=== PATIENT | female | born 1965 | race American Indian/Alaskan Native ===

== ENCOUNTER 2016-09-29 17:23 | Emergency (ER) | payer SELFPAY ==
[2016-09-29] MEDS: NORCO 5/325 PO ONE (18:09)
[2016-09-29] MEDS: CATAPRES PO ONE (18:09)
--- NOTE | 2016-09-29 18:11 | Emergency Department Report ---
HPI - General Chief Complaint: High BP Time Seen by Provider: 09/29/16 17:52 - HPI HPI: Room 2 The patient is a 51-year-old female presenting with a chief complaint of hypertension. The patient states she has been off her blood pressure medication for the past 3 years. The patient states for the past 2-3 months she would have intermittent headache that is sometimes helped with Excedrin. Patient had a scheduled appointment to see her primary physician when she arrived she was noted to be hypertensive. The patient was administered blood pressure medication at 16:00 for her blood pressure continued to rise. The patient states she was a symptomatic at that time however after being transported the patient states she had a "numbness and sharp " discomfort in her chest that lasted 15 minutes but resolved. The patient states she did develop a headache which is still present gives a score of 6/10. Patient denies shortness of breath, nausea/vomiting or diaphoresis. Patient currently denies chest pain. Location: [see above] Duration: [see above] Quality: Headache Severity: 6/10 Modifying factors: [see above] Context: [see above] Mode of transportation: [not driving] ED Past Medical Hx - Past Medical History Previous Medical History?: Yes Hx Hypertension: Yes Hx Diabetes: Yes Hx Psychiatric Treatment: Yes (depression) - Surgical History Past Surgical History?: Yes Additional Surgical History: gastric bypass 1998 - Family History Family history: no significant - Social History Smoking Status: Never Smoker Substance Use Type: None - Medications Home Medications: Home Medications Medication Instructions Recorded Confirmed Last Taken Type amLODIPine [Norvasc] 10 mg PO DAILY #90 tab 09/29/16 Unknown Rx ED Review of Systems ROS: Stated complaint: HBP/BOTH ARMS/LEGS PAIN/CHEST PAIN Other details as noted in HPI Comment: All other systems reviewed and negative Constitutional: denies: chills, fever Eyes: denies: eye pain, eye discharge, vision change ENT: denies: ear pain, throat pain Respiratory: denies: cough, shortness of breath, wheezing Cardiovascular: chest pain. denies: palpitations Endocrine: no symptoms reported Gastrointestinal: denies: abdominal pain, nausea, diarrhea Genitourinary: denies: urgency, dysuria, discharge Musculoskeletal: denies: back pain, joint swelling, arthralgia Skin: denies: rash, lesions Neurological: headache Psychiatric: denies: anxiety, depression Hematological/Lymphatic: denies: easy bleeding, easy bruising Physical Exam - Physical Exam Vital Signs: Vital Signs 09/29/16 09/29/16 09/29/16 17:30 17:32 17:33 Temperature 98.1 F Pulse Rate 66 Respiratory Rate Blood Pressure 205/116 205/116 O2 Sat by Pulse 100 100 100 Oximetry 09/29/16 09/29/16 09/29/16 17:35 17:37 17:39 Temperature Pulse Rate 69 67 68 Respiratory 11 L 14 16 Rate Blood Pressure 205/116 205/116 205/116 O2 Sat by Pulse 100 100 100 Oximetry 09/29/16 09/29/16 09/29/16 17:41 17:43 17:45 Temperature Pulse Rate 63 69 67 Respiratory 10 L 13 10 L Rate Blood Pressure 205/116 205/116 215/122 O2 Sat by Pulse 100 100 100 Oximetry 09/29/16 09/29/16 17:47 17:57 Temperature Pulse Rate 63 Respiratory 10 L 10 L Rate Blood Pressure 215/122 O2 Sat by Pulse 100 100 Oximetry Physical Exam: GENERAL: The patient is well-developed well-nourished female lying on stretcher not appearing to be in acute distress. [] HEENT: Normocephalic. Atraumatic. Extraocular motions are intact. Patient has moist mucous membranes. NECK: Supple. Trachea midline CHEST/LUNGS: Clear to auscultation. There is no respiratory distress noted. HEART/CARDIOVASCULAR: Regular. There is no tachycardia. There is no gallop rub or murmur. ABDOMEN: Abdomen is soft, nontender. Patient has normal bowel sounds. There is no abdominal distention. SKIN: There is no rash. There is no edema. There is no diaphoresis. NEURO: The patient is awake, alert, and oriented. The patient is cooperative. The patient has no focal neurologic deficits. The patient has normal speech. Cranial nerves II through XII grossly intact, no drift MUSCULOSKELETAL: There is no evidence of acute injury. ED Course Vital Signs 09/29/16 09/29/16 09/29/16 17:30 17:32 17:33 Temperature 98.1 F Pulse Rate 66 Respiratory Rate Blood Pressure 205/116 205/116 O2 Sat by Pulse 100 100 100 Oximetry 09/29/16 09/29/16 09/29/16 17:35 17:37 17:39 Temperature Pulse Rate 69 67 68 Respiratory 11 L 14 16 Rate Blood Pressure 205/116 205/116 205/116 O2 Sat by Pulse 100 100 100 Oximetry 09/29/16 09/29/16 09/29/16 17:41 17:43 17:45 Temperature Pulse Rate 63 69 67 Respiratory 10 L 13 10 L Rate Blood Pressure 205/116 205/116 215/122 O2 Sat by Pulse 100 100 100 Oximetry 09/29/16 09/29/16 17:47 17:57 Temperature Pulse Rate 63 Respiratory 10 L 10 L Rate Blood Pressure 215/122 O2 Sat by Pulse 100 100 Oximetry ED Medical Decision Making - Lab Data Result diagrams: 09/29/16 18:07 09/29/16 18:07 Laboratory Tests 09/29/16 09/29/16 18:07 18:07 WBC 4.5 RBC 4.33 Hgb 10.5 Hct 33.3 MCV 77 L MCH 24 L MCHC 32 RDW 16.2 H Plt Count 429 Lymph % (Auto) 40.8 H [place] % (Auto) 8.3 H Eos % (Auto) 2.5 Baso % (Auto) 1.2 Lymph # 1.8 [place] # 0.4 Eos # 0.1 Baso # 0.1 Seg Neutrophils % 47.2 Seg Neutrophils # 2.1 Sodium 141 Potassium 4.3 Chloride 100.4 Carbon Dioxide 25 Anion Gap 20 BUN 9 Creatinine 0.7 Estimated GFR > 60 BUN/Creatinine Ratio 12.85 Glucose 80 Calcium 9.0 Troponin T < 0.010 - EKG Data -: EKG Interpreted by Ct EKG shows normal: sinus rhythm Rate: normal - EKG Data When compared to previous EKG there are: previous EKG unavailable Interpretation: nonspecific ST-T wave taj (T-wave inversion in lead 3 and V2) - Radiology Data Radiology results: report reviewed (CT head), image reviewed (CT head) CT head (read by radiologist)-normal study - Differential Diagnosis hypertensive urgency, ICH Critical care attestation.: If time is entered above; I have spent that time in minutes in the direct care of this critically ill patient, excluding procedure time. ED Disposition Clinical Impression: Hypertensive urgency Disposition: DISCHARGED TO HOME OR SELFCARE Is pt being admited?: No Does the pt Need Aspirin: No Condition: Stable Instructions: Hypertensive Crisis (ED), Chronic Hypertension (ED) Additional Instructions: Return to the emergency department immediately should you develop worsening symptoms, fever, inability to tolerate food or liquid or any other concerns. Prescriptions: amLODIPine [Norvasc] 10 mg PO DAILY #90 tab Referrals: PRIMARY CARE, [Primary Care Provider] - 3-5 Days Time of Disposition: 19:10
[2016-09-29 18:44] LABS: Anion Gap 20 mmol/L; BUN/Creatinine Ratio 12.85; Blood Urea Nitrogen 9 mg/dL (7-17); Carbon Dioxide 25 mmol/L (22-30); Chloride 100.4 mmol/L (98-107); Glucose 80 mg/dL (65-100); Potassium 4.3 mmol/L (3.6-5.0); Sodium 141 mmol/L (137-145)
[2016-09-29 18:59] LABS: Basophils % (Auto) 1.2 % (0.0-1.8); Eosinophils % (Auto) 2.5 % (0.0-4.3); Hematocrit 33.3 % (30.3-42.9); Hemoglobin 10.5 gm/dl (10.1-14.3); Mean Corpuscular HGB Conc 32 % (30-34); Mean Corpuscular Volume 77 fl (79-97); Platelet Count 429 K/mm3 (140-440); Red Blood Count 4.33 M/mm3 (3.65-5.03); Red Cell Distribution Width 16.2 % (13.2-15.2); White Blood Count 4.5 K/mm3 (4.5-11.0)
--- NOTE | 2016-09-29 19:00 | Cat Scan Report ---
FINAL REPORT PROCEDURE: CT head without contrast. TECHNIQUE: Computerized tomography of the head was performed without contrast material. HISTORY: Hypertension, headache. COMPARISON: No prior studies are available for comparison. FINDINGS: The ventricles are normal in size. The holcomb matter and white matter appear normal. There are no mass lesions. There is no intracranial hemorrhage. The calvarium appears intact. The mastoid air cells and visualized paranasal sinuses are well aerated. IMPRESSION: Normal study.
[2016-09-29 19:03] LABS: Mean Corpuscular Hemoglobin 24 pg (28-32)
[2016-09-29 19:37] VITALS: BP 127/82
== END 2016-09-29 19:37 | disposition home or self-care (01) ==
LOC: ED 17:23
DX: I10 Essential (primary) hypertension (principal); E11.9 Type 2 diabetes mellitus without complications; F32.9 Major depressive disorder, single episode, unspecified; Z88.6 Allergy status to analgesic agent; Z88.0 Allergy status to penicillin; Z98.84 Bariatric surgery status; Z79.899 Other long term (current) drug therapy
CPT/HCPCS: 36415; 70450; 80048; 84484; 85025; 93005; 93010

== ENCOUNTER 2021-04-19 11:00 | Outpatient (CLI) | payer MEDICAID | END 2021-04-19 11:01 | disposition home or self-care (01) | LOC: SLR 11:00 | PROVIDERS: ATTEND Internal Medicine Critical Care Medicine | DX: G47.30 Sleep apnea, unspecified (principal) | CPT/HCPCS: G0399 ==